=== PATIENT | female | born 1960 | race Two or more races ===

== ENCOUNTER 2017-08-18 07:12 | Outpatient (CLI) | payer OTHER | END 2017-08-18 07:27 | disposition home or self-care (01) | LOC: NUCLEAR 07:12 | DX: R06.09 Other forms of dyspnea (principal); I11.9 Hypertensive heart disease without heart failure | CPT/HCPCS: 78452; 93017; A9500 ==

== ENCOUNTER 2018-10-26 13:22 | Outpatient (CLI) | payer OTHER | END 2018-10-26 13:40 | disposition home or self-care (01) | LOC: SONOGRAMA 13:22 → MAMO-SONO 13:45 | DX: E03.8 Other specified hypothyroidism (principal); E06.3 Autoimmune thyroiditis; Z80.0 Family history of malignant neoplasm of digestive organs; D57.20 Sickle-cell/Hb-C disease without crisis; I10 Essential (primary) hypertension ==

== ENCOUNTER 2018-11-12 08:18 | Outpatient (CLI) | payer OTHER | END 2018-11-12 12:26 | disposition home or self-care (01) | LOC: LAB 08:18 | DX: E03.8 Other specified hypothyroidism (principal); I10 Essential (primary) hypertension; Z80.0 Family history of malignant neoplasm of digestive organs; D51.1 Vitamin B12 deficiency anemia due to selective vitamin B12 malabsorption with proteinuria; D55.0 Anemia due to glucose-6-phosphate dehydrogenase [G6PD] deficiency; K90.89 Other intestinal malabsorption; D51.0 Vitamin B12 deficiency anemia due to intrinsic factor deficiency; E06.3 Autoimmune thyroiditis; R97.0 Elevated carcinoembryonic antigen [CEA]; R97.8 Other abnormal tumor markers ==